=== PATIENT | female | born 2000 | race African-American/Black ===

== ENCOUNTER 2021-10-02 13:58 | Emergency (ER) | payer OTHER ==
[2021-10-02 14:18] VITALS: BP 138/64; TEMP 99; BMI 33.6
[2021-10-02] MEDS ORDERED: DEXAMETHASONE SOD PHOSPHATE 10 MG/1 ML VIAL IVPUSH ONE (15:17)
[2021-10-02] MEDS ORDERED: SODIUM CHLORIDE 0.9% 500 ML INFUS.BAG IV ONE (15:17)
[2021-10-02] MEDS ORDERED: FAMOTIDINE 20 MG/50 ML IVPB 20 MG/50 ML MG IVPB ONE ×2 (15:18→15:36)
[2021-10-02] MEDS ORDERED: DEXAMETHASONE SOD PHOSPHATE 10 MG/1 ML VIAL ONE (15:36)
[2021-10-02 16:09] LABS: BASO % 0.5 % (0-2.0); EOS % 0.1 % (0-4.5); HEMATOCRIT 39.7 % (32.4-45.2); HEMOGLOBIN 13.4 GM/dL (10.7-15.3); LYMPH % 12.5 % (8-40); MCH 28.9 pg (25.7-33.7); MCHC 33.7 g/dl (32.0-36.0); MEAN CELL VOLUME 85.8 fl (80-96); MEAN PLT VOLUME 8.2 fl (7.5-11.1); MONO % 9.7 % (3.8-10.2); NEUT % 77.2 % (42.8-82.8); PLATELET COUNT 377 10^3/uL (134-434); RBC 4.63 M/mm3 (3.60-5.2); RDW 13.9 % (11.6-15.6); WHITE BLOOD COUNT 8.8 K/mm3 (4.0-10.0)
[2021-10-02 16:34] LABS: ALBUMIN 3.8 g/dl (3.4-5.0); BLOOD UREA NITROGEN 11.8 mg/dL (7-18); CALCIUM 9.2 mg/dL (8.5-10.1)
[2021-10-02 16:38] LABS: CREATININE 0.8 mg/dL (0.55-1.3); TOT PROT 7.7 g/dl (6.4-8.2)
[2021-10-02 16:39] LABS: BILIRUBIN,TOTAL 0.4 mg/dL (0.2-1)
[2021-10-02 17:43] VITALS: PULSE 90; RESP 18
[2021-10-02] MEDS ORDERED: KETOROLAC TROMETHAMINE 30 MG/1 ML VIAL IVPUSH ONE (18:31)
[2021-10-02] MEDS ORDERED: KETOROLAC TROMETHAMINE 30 MG/1 ML VIAL ONE (18:40)
== END 2021-10-02 19:01 | disposition home or self-care (01) ==
LOC: JER 13:58
PROC: 3E033GC Introduction of Other Therapeutic Substance into Peripheral Vein, Percutaneous Approach (ICD-10-PCS; principal; 2021-10-02)
DX: T78.40XA Allergy, unspecified, initial encounter (principal)
CPT/HCPCS: 36415; 80053; 84443; 85025; 93005; 93010; 99284-25; J1100

== ENCOUNTER 2023-08-30 05:56 | Emergency (ER) | payer OTHER ==
[2023-08-30 06:06] VITALS: TEMP 99.9; BMI 35.5
[2023-08-30 07:58] LABS: EPI CELLS 4 /uL (0-25.1); HYALINE CASTS 0 /uL (0-3.1); PH,URINE 5.5 (5.0-8.0); URINE APPEARANCE CLEAR; URINE BACTERIA 97 /uL (0-1359); URINE BILIRUBIN NEGATIVE (NEGATIVE); URINE COLOR YELLOW; URINE GLUCOSE (UA) NEGATIVE (NEGATIVE); URINE KETONE TRACE (NEGATIVE); URINE LEUK ESTERASE TRACE (NEGATIVE); URINE NITRITE NEGATIVE (NEGATIVE); URINE PROTEIN NEGATIVE (NEGATIVE); URINE RBC 34 /uL (0-23.9); URINE WBC 11 /uL (0-25.8)
[2023-08-30 08:24] LABS: HIV INTERPRETATION NEGATIVE (NEGATIVE)
[2023-08-30] MEDS ORDERED: DOXYCYCLINE HYCLATE 100 MG CAPSULE PO ONE (08:31)
[2023-08-30] MEDS ORDERED: cefTRIAXone SODIUM 1 GM VIAL ONE (08:31)
[2023-08-30] MEDS ORDERED: LIDOCAINE 4% PATCH TP ONE (08:42)
[2023-08-30] MEDS ORDERED: IBUPROFEN 600 MG TABLET (FP) PO ONE (08:42)
[2023-08-30] MEDS: PANTOPRAZOLE 40 MG TABLET PO ONE (08:48)
[2023-08-30] MEDS ORDERED: LIDOCAINE HCL/PF 1% SDV 5ML VIAL ONE (08:50)
[2023-08-30] MEDS ORDERED: ACETAMINOPHEN 500 MG TABLET (FP) ONE (08:51)
[2023-08-30] MEDS: IBUPROFEN 600 MG TABLET (FP) PO ONE (09:11)
[2023-08-30] MEDS: ACETAMINOPHEN 500 MG TABLET (FP) PO ONE (09:11)
[2023-08-30] MEDS: DOXYCYCLINE HYCLATE 100 MG CAPSULE PO ONE (09:11)
[2023-08-30] MEDS: LIDOCAINE HCL 1% PRESERVATIVE FREE - 30ML VIAL IJ ONE (09:11)
[2023-08-30] MEDS: LIDOCAINE 5% TOPICAL PATCH TP ONE (09:22)
[2023-08-30 10:14] VITALS: BP 138/80; PULSE 97; RESP 16
[2023-08-30] MEDS ORDERED: LIDOCAINE PATCH REMOVAL MC SCH (22:00)
== END 2023-08-30 10:14 | disposition home or self-care (01) ==
LOC: JER 05:56
DX: M54.50 Low back pain, unspecified (principal); N89.8 Other specified noninflammatory disorders of vagina; R30.0 Dysuria; Z20.2 Contact with and (suspected) exposure to infections with a predominantly sexual mode of transmission
CPT/HCPCS: 36415; 72100-TC-FY; 81003; 84703; 86780; 87070; 87077; 87086; 87205; 87389; 87491; 87529; 87591; 87661; 99284-25

== ENCOUNTER 2023-08-31 23:57 | Emergency (ER) | payer OTHER ==
[2023-09-01 00:01] VITALS: BP 139/86; PULSE 100; RESP 18; TEMP 97.7; BMI 35.5
[2023-09-01] MEDS ORDERED: ONDANSETRON 8 MG TABLET (FP) PO ONE (00:44)
[2023-09-01] MEDS: ONDANSETRON 8 MG TABLET (FP) PO ONE (00:47)
== END 2023-09-01 01:45 | disposition home or self-care (01) ==
LOC: JER 23:57
DX: R42 Dizziness and giddiness (principal); R11.0 Nausea; R21 Rash and other nonspecific skin eruption; T40.2X5A Adverse effect of other opioids, initial encounter
CPT/HCPCS: 99283-25